=== PATIENT | male | born 1975 | race African-American/Black ===

== ENCOUNTER 2016-07-27 17:56 | Emergency (ER) | payer MEDICAID ==
[~2016-07-27] VITALS: Ht 175.3 cm; Wt 112.0 kg
[~2016-07-27 17:56] MED LIST: COGENTIN; GEODON; METFORMIN
[2016-07-27] MEDS ORDERED: KETOROLAC 60MG/2ML VIAL IM ONE (22:00)
[2016-07-27 22:04] VITALS: BP 120/64
== END 2016-07-27 23:22 | disposition home or self-care (01) ==
LOC: ER 17:56
DX: G43.909 Migraine, unspecified, not intractable, without status migrainosus (principal); Z79.899 Other long term (current) drug therapy; E11.9 Type 2 diabetes mellitus without complications
CPT/HCPCS: 96372; 99283; J1885

== ENCOUNTER 2017-01-07 12:37 | Emergency (ER) | payer MEDICAID ==
[~2017-01-07] VITALS: Ht 177.8 cm; Wt 111.0 kg
[2017-01-07] MEDS ORDERED: HYDROCODONE/ACETAMINOPHEN 5/325MG TABLET PO ONE ×2 (14:00→16:00)
[2017-01-07 16:10] VITALS: BP 137/87
== END 2017-01-07 16:12 | disposition home or self-care (01) ==
LOC: ER 13:58
DX: S63.501A Unspecified sprain of right wrist, initial encounter (principal); M79.641 Pain in right hand; X58.XXXA Exposure to other specified factors, initial encounter; Y93.9 Activity, unspecified; Y92.9 Unspecified place or not applicable; E11.9 Type 2 diabetes mellitus without complications; Z79.84 Long term (current) use of oral hypoglycemic drugs; Z98.890 Other specified postprocedural states
CPT/HCPCS: 73110; 73130; 99284

== ENCOUNTER 2017-06-06 04:00 | Emergency (ER) | payer MEDICAID ==
[~2017-06-06] VITALS: Ht 177.8 cm; Wt 112.0 kg
[2017-06-06 08:01] VITALS: BP 107/70
== END 2017-06-06 08:21 | disposition home or self-care (01) ==
LOC: ER 04:00
DX: B36.0 Pityriasis versicolor (principal); E11.9 Type 2 diabetes mellitus without complications; Z96.649 Presence of unspecified artificial hip joint; Z79.84 Long term (current) use of oral hypoglycemic drugs; Z98.890 Other specified postprocedural states
CPT/HCPCS: 99282

== ENCOUNTER 2017-12-23 00:17 | Emergency (ER) | payer MEDICAID ==
[~2017-12-23] VITALS: Ht 177.8 cm; Wt 114.0 kg
[2017-12-23 00:27] VITALS: BP 114/67
== END 2017-12-23 04:32 | disposition left against medical advice (07) ==
LOC: ER 03:51
DX: Z53.21 Procedure and treatment not carried out due to patient leaving prior to being seen by health care provider (principal)

== ENCOUNTER 2017-12-25 00:16 | Emergency (ER) | payer MEDICAID ==
[~2017-12-25] VITALS: Ht 177.8 cm; Wt 112.0 kg
[2017-12-25 04:28] VITALS: BP 115/78
== END 2017-12-25 04:28 | disposition home or self-care (01) ==
LOC: ER 00:16
DX: H60.502 Unspecified acute noninfective otitis externa, left ear (principal); R03.0 Elevated blood-pressure reading, without diagnosis of hypertension
CPT/HCPCS: 99283

== ENCOUNTER 2018-02-10 02:04 | Emergency (ER) | payer MEDICAID ==
[~2018-02-10] VITALS: Ht 177.8 cm; Wt 113.0 kg
[2018-02-10] MEDS ORDERED: IBUPROFEN 600MG TABLET PO STA (03:35)
[2018-02-10 05:38] VITALS: BP 119/76
== END 2018-02-10 05:39 | disposition home or self-care (01) ==
LOC: ER 02:04
DX: S39.012A Strain of muscle, fascia and tendon of lower back, initial encounter (principal); S16.1XXA Strain of muscle, fascia and tendon at neck level, initial encounter; V49.49XA Driver injured in collision with other motor vehicles in traffic accident, initial encounter; Y93.89 Activity, other specified; Y92.410 Unspecified street and highway as the place of occurrence of the external cause
CPT/HCPCS: 72100; 99283

== ENCOUNTER 2018-07-05 21:52 | Emergency (ER) | payer MEDICAID ==
[~2018-07-05] VITALS: Ht 177.8 cm; Wt 122.4 kg
[2018-07-05] MEDS ORDERED: IBUPROFEN 800MG TABLET PO ONE (23:00)
[2018-07-05 23:32] VITALS: BP 115/79
== END 2018-07-05 23:31 | disposition home or self-care (01) ==
LOC: ER 21:52
DX: H92.02 Otalgia, left ear (principal)
CPT/HCPCS: 99283

== ENCOUNTER 2018-12-20 21:06 | Emergency (ER) | payer MEDICAID ==
[~2018-12-20] VITALS: Ht 177.8 cm; Wt 127.0 kg
[2018-12-21 00:05] VITALS: BP 124/48
== END 2018-12-21 00:08 | disposition home or self-care (01) ==
LOC: ER 21:06
DX: R07.89 Other chest pain (principal); E11.9 Type 2 diabetes mellitus without complications; Z88.8 Allergy status to other drugs, medicaments and biological substances; Z96.651 Presence of right artificial knee joint
CPT/HCPCS: 36415; 84484; 93005; 99283

== ENCOUNTER 2019-11-17 12:09 | Emergency (ER) | payer MEDICAID ==
[~2019-11-17] VITALS: Ht 177.8 cm; Wt 137.0 kg
[2019-11-17] MEDS ORDERED: IBUPROFEN 600MG TABLET PO ONE (13:45)
[2019-11-17 15:28] VITALS: BP 140/95
== END 2019-11-17 15:30 | disposition home or self-care (01) ==
LOC: ER 12:09
DX: M79.672 Pain in left foot (principal); E11.9 Type 2 diabetes mellitus without complications; Z79.899 Other long term (current) drug therapy; Z98.890 Other specified postprocedural states
CPT/HCPCS: 73630; 99283